=== PATIENT | male | born 1985 | race Caucasian/White ===

== ENCOUNTER 2017-10-19 23:16 | Emergency (ER) | payer OTHER ==
[~2017-10-19] VITALS: Ht 172.7 cm; Wt 81.6 kg
[2017-10-19] MEDS ORDERED: IV NS 0.9% 1,000 ML BAG IV ONE (23:30)
[2017-10-19] MEDS ORDERED: HYDROMORPHONE INJ 2 MG/ML DISP.SYRIN IV ONE (23:30)
[2017-10-19] MEDS ORDERED: ONDANSETRON HCL/PF 4 MG/2 ML VIAL IVP ONE (23:30)
--- NOTE | 2017-10-19 23:30 | NUR ---
TO BED 7 A 31 YO MALE PATIENT BIBSELF W C/O RT TESTICULAR PAIN X COUPLE HRS, UNABLE TO URINATE, DENIES HEMATURIA. NAD NOTED. VSS. GOWNED. COMFORT MEASURES RENDERED.
[2017-10-19] MEDS ORDERED: ONDANSETRON HCL/PF 4 MG/2 ML VIAL ONE (23:34)
[2017-10-19] MEDS ORDERED: HYDROMORPHONE INJ 2 MG/ML DISP.SYRIN ONE (23:35)
--- NOTE | 2017-10-19 23:40 | NUR ---
Lucian Caldwell at bedside to evaluate patient.
--- NOTE | 2017-10-19 23:44 | NUR ---
patient taken to ct.
--- NOTE | 2017-10-19 23:59 | NUR ---
Patient does not wish to proceed with medical care recommended by Lucian Caldwell. Patient given information related to possible complications, up to and including , which could occur as a result of leaving the hospital at this time. Patient verbalizes understanding of risks involved due to leaving against medical advice. Patient has signed AMA form. Patient discharged to home in stable condition. Written and verbal after care instructions given. Patient verbalizes understanding of instruction. Patient is ambulatory with steady gait, accompanied by friend.
[2017-10-20] VITALS: BP 139/83
== END 2017-10-20 00:01 | disposition left against medical advice (07) ==
LOC: ER 23:23
DX: N50.811 Right testicular pain (principal); R10.31 Right lower quadrant pain; B19.10 Unspecified viral hepatitis B without hepatic coma
CPT/HCPCS: 74176; 99284; A4606; J7030; Z7610; J1170; J2405